=== PATIENT | female | born 1960 | race Caucasian/White ===

== ENCOUNTER 2021-08-18 15:08 | Outpatient (REF) | payer BC, SELFPAY ==
--- NOTE | ~2021-08-18 | CT_ITS ---
EXAMINATION: CT PELVIS WITHOUT CONTRAST CLINICAL INFORMATION: Low back pain. Arthropathy. COMPARISON: None TECHNIQUE: Helical scanning was performed with submillimeter collimation through the pelvis. Sagittal and coronal multiplanar 2-D reconstructions were obtained. This CT examination was performed using dose optimization techniques as appropriate, variously including the following: *Automated exposure control. *Adjustment of mA and/or kV according to patient size (this includes techniques or standardized protocols for targeted exams where dose is matched to indication/reason for exam; i.e. extremities or head). *Use of iterative reconstruction technique. DLP: 1253 mGy-cm FINDINGS: PELVIS: No free air or free fluid seen. The uterus is anteverted and appears unremarkable. No adnexal mass seen. There are scattered phleboliths in the pelvis. There are prominent bilateral anal lymph nodes slightly larger on the right with the largest right inguinal lymph node measuring 1.6 x 1.6 cm on sagittal view 154/10. OSSEOUS STRUCTURES: There are degenerative disc changes with vacuum disc phenomena L4-L5 and L5-S1 disc levels. There is grade 1 anterolisthesis L5 over S1. No lytic or sclerotic process seen. There is bilateral L5-S1 and L4-L5 facet joint arthropathy. CT/CT pelvis wo con IMPRESSION: Degenerative disc changes L4-L5 and L5-S1 disc levels with bilateral facet joint arthropathy. Grade 1 anterolisthesis L5 over S1.
--- NOTE | ~2021-08-18 | CT_ITS ---
EXAMINATION: CT LUMBAR SPINE WITHOUT CONTRAST CLINICAL INFORMATION: Spondylolisthesis. Low back pain COMPARISON: None TECHNIQUE: 2 mm thin axial and reformatted 2 mm thin sagittal coronal images of lumbar spine were obtained. This CT examination was performed using dose optimization techniques as appropriate, variously including the following: *Automated exposure control *Adjustment of mA and/or kV according to patient size (this includes techniques or standardized protocols for targeted exams where dose is matched to indication/reason for exam; i.e. extremities or head) *Use of iterative reconstruction technique DLP; 1253 mGy-cm FINDINGS: There is normal lumbar lordosis. There is grade 1 anterolisthesis L5 over S1. Rest of the vertebral alignment is normal. There is loss of disc height with vacuum disc phenomena L2-L3 through L5-S1 disc levels. There is mild ventral spondylosis L2-L3, L3-L4 disc levels. The L1-L2 disc level appears unremarkable. At L2-L3 disc level there is mild spondylosis. No disc bulge herniation or spinal stenosis seen. The neural foramina are patent bilaterally. At L3-L4 disc level there is minimal bulge without spinal canal stenosis. The neural foramina are bilaterally patent in spite of mild uncovertebral hypertrophic changes. At L4-L5 disc level there is minimal disc bulge without spinal canal stenosis. The neural foramina are patent bilaterally. There is mild bilateral L4-L5 facet joint arthropathy. At L5-S1 disc level there is no significant disc bulge, herniation or spinal canal stenosis. The neural foramina are patent in spite of bilateral severe left and moderate right facet joint arthropathy. There is endplate sclerosis at L2-L3 disc level. Otherwise no lytic or sclerotic process seen. The paravertebral soft tissues are normal. CT/CT lumbar spine wo con IMPRESSION: Degenerative disc changes with vacuum disc phenomena L2-L3 through L5-S1 disc levels. There is mild disc L4-L5 and L3-L4 disc levels without spinal canal stenosis. There is grade 1 anterolisthesis L5 over S1. There is significant facet joint arthropathy at L5-S1 and mild hypertrophy at L4-L5 disc levels.
== END 2021-08-18 15:09 | disposition home or self-care (01) ==
LOC: HO.CT 15:08
PROVIDERS: Visit Provider Neurological Surgery
DX: M47.816 Spondylosis without myelopathy or radiculopathy, lumbar region (principal)
CPT/HCPCS: 72131; 72192